=== PATIENT | male | born 1960 | race American Indian/Alaskan Native ===

== ENCOUNTER 2020-03-01 22:50 | Emergency (ER) | payer BC ==
[2020-03-02] MEDS ORDERED: HYOSCYAMINE SUBL 0.125 MG TAB SL ONE (00:59)
[2020-03-02] MEDS ORDERED: ONDANSETRON 4 MG ODT TAB PO ONE (01:01)
--- NOTE | 2020-03-02 03:01 | Emergency Department Report ---
ED N/V/D HPI - General Chief complaint: Nausea/Vomiting/Diarrhea Stated complaint: VOMITING Time Seen by Provider: 03/02/20 00:11 Source: patient Mode of arrival: Ambulatory Limitations: No Limitations - History of Present Illness Initial comments: 60-year-old F [place]an male with emerge department complaining of suspected food poisoning exacerbation from [facility] states that he consumed palpable around 7 PM and developed 3-4 episodes of vomiting followed by 1 episode of diarrhea waxing and waning abdominal pain and cramping since ingestion of food. Ports no hemoptysis no hematemesis no hematochezia. No fever, chills, sweats no chest pain or palpitations. With history of hypertension for which she takes very compliant with his medication and did try to utilize [id number] Mucinex for some cough and congestion which he states further exacerbated his vomiting but he has not yet had a fever. He did he reports no foreign travel no known sick contacts Description of Vomiting: food contents Radiation: none Severity: mild, moderate Quality: dull Consistency: constant Improves with: none Worsens with: none Associated Symptoms: denies other symptoms. denies: chest pain, cough, loss of appetite, malaise, rash, weakness - Related Data Previous Rx's Medication Instructions Recorded Last Taken Type Hyoscyamine Subl [Levsin Sl 0.125 0.125 mg SL Q6HR PRN #20 tab 03/02/20 Unknown Rx TAB] Ondansetron [Zofran ODT TAB] 8 mg PO Q12HR #14 tab.rapdis 03/02/20 Unknown Rx Allergies Allergy/AdvReac Type Severity Reaction Status Date / Time No Known Allergies Allergy Unverified 03/02/20 00:59 ED Review of Systems ROS: Stated complaint: VOMITING Other details as noted in HPI Comment: All other systems reviewed and negative ED Past Medical Hx - Past Medical History Previous Medical History?: Yes Hx Hypertension: Yes - Surgical History Past Surgical History?: Yes - Social History Smoking Status: Current Every Day Smoker Substance Use Type: None - Medications Home Medications: Home Medications Medication Instructions Recorded Confirmed Last Taken Type Hyoscyamine Subl [Levsin Sl 0.125 0.125 mg SL Q6HR PRN #20 tab 03/02/20 Unknown Rx TAB] Ondansetron [Zofran ODT TAB] 8 mg PO Q12HR #14 tab.rapdis 03/02/20 Unknown Rx ED Physical Exam - General Limitations: No Limitations General appearance: alert, in no apparent distress - Head Head exam: Present: atraumatic, normocephalic - Eye Eye exam: Present: normal appearance, PERRL, EOMI Pupils: Present: normal accommodation - ENT ENT exam: Present: normal exam, mucous membranes moist, TM's normal bilaterally - Neck Neck exam: Present: normal inspection, full ROM - Respiratory Respiratory exam: Present: normal lung sounds bilaterally. Absent: respiratory distress, wheezes, rales, chest wall tenderness - Cardiovascular Cardiovascular Exam: Present: regular rate, normal rhythm. Absent: systolic murmur, diastolic murmur, rubs, gallop - GI/Abdominal GI/Abdominal exam: Present: soft, normal bowel sounds. Absent: tenderness, guarding - Rectal Rectal exam: Present: deferred - Extremities Exam Extremities exam: Present: normal inspection - Back Exam Back exam: Present: normal inspection. Absent: CVA tenderness (R), CVA tenderness (L) - Neurological Exam Neurological exam: Present: alert, oriented X3, CN II-XII intact - Psychiatric Psychiatric exam: Present: normal affect, normal mood. Absent: anxious, flat affect, suicidal ideation - Skin Skin exam: Present: warm, dry, intact, normal color. Absent: rash ED Course Vital Signs 03/01/20 22:57 Temperature 98.7 F Pulse Rate 85 Respiratory 18 Rate Blood Pressure 153/101 O2 Sat by Pulse 97 Oximetry Critical care attestation.: If time is entered above; I have spent that time in minutes in the direct care of this critically ill patient, excluding procedure time. ED Disposition Clinical Impression: Gastroenteritis Disposition: DC-01 TO HOME OR SELFCARE Is pt being admited?: No Does the pt Need Aspirin: No Condition: Stable Instructions: Gastroenteritis (ED), Acute Nausea and Vomiting (ED), Food Poisoning (ED) Prescriptions: Hyoscyamine Subl [Levsin Sl 0.125 TAB] 0.125 mg SL Q6HR PRN #20 tab PRN Reason: abdominal cramps and spasms Ondansetron [Zofran ODT TAB] 8 mg PO Q12HR #14 tab.kapil Referrals: DR. DELLA [Other] - 3-5 Days
[2020-03-02 03:24] VITALS: BP 124/90
== END 2020-03-02 03:24 | disposition home or self-care (01) ==
LOC: ED 22:50
DX: K52.89 Other specified noninfective gastroenteritis and colitis (principal); I10 Essential (primary) hypertension; F17.200 Nicotine dependence, unspecified, uncomplicated
CPT/HCPCS: 99282; Q0162

== ENCOUNTER 2020-03-02 17:09 | Emergency (ER) | payer BC ==
[2020-03-02 17:30] VITALS: BP 131/103
[2020-03-02] MEDS ORDERED: ONDANSETRON 4 MG ODT TAB PO ONE (18:05)
[2020-03-02] MEDS ORDERED: LIDOCAINE VISCOUS 2% 15 ML ORAL LIQD PO ONE (18:05)
[2020-03-02] MEDS ORDERED: ALUM-MAG HYDROXIDE-SIMETHICONE 200-200-20MG/5ML ORAL LIQD 30 ML PO ONE (18:05)
--- NOTE | 2020-03-02 18:19 | Emergency Department Report ---
ED General Adult HPI - General Chief complaint: Sore Throat Stated complaint: MUCUS IN THROAT Time Seen by Provider: 03/02/20 18:01 Source: patient Mode of arrival: Ambulatory Limitations: No Limitations - History of Present Illness Initial comments: This very pleasant 60-year-old male presents the emergency department with a chief complaint of a sensation of thick mucus in his throat started last night. Patient was seen in the emergency department last night due to suspicion that he may have food poisoning. He reported some nausea, vomiting, diarrhea and some intermittent abdominal cramping after eating [employer]. He states he is concerned about thick mucus in the back of his throat. He has past medical history of hypertension. He denies any associated fever, chills, night sweats, headache, dizziness, blurry vision, hematemesis, melena, hematochezia, weakness or any other associated symptoms. - Related Data Previous Rx's Medication Instructions Recorded Last Taken Type Famotidine [Pepcid] 10 mg PO BID #20 tablet 03/02/20 Unknown Rx Hyoscyamine Subl [Levsin Sl 0.125 0.125 mg SL Q6HR PRN #20 tab 03/02/20 Unknown Rx TAB] Ondansetron [Zofran ODT TAB] 8 mg PO Q12HR #14 tab.rapdis 03/02/20 Unknown Rx Allergies Allergy/AdvReac Type Severity Reaction Status Date / Time No Known Allergies Allergy Unverified 03/02/20 00:59 ED Review of Systems ROS: Stated complaint: MUCUS IN THROAT Other details as noted in HPI Constitutional: denies: chills, fever Eyes: denies: eye pain, eye discharge, vision change ENT: as per HPI. denies: ear pain, throat pain Respiratory: denies: cough, shortness of breath, wheezing Cardiovascular: denies: chest pain, palpitations Endocrine: no symptoms reported Gastrointestinal: as per HPI, nausea, vomiting, diarrhea Genitourinary: denies: urgency, dysuria Musculoskeletal: denies: back pain, joint swelling, arthralgia Skin: denies: rash, lesions Neurological: denies: headache, weakness, paresthesias Psychiatric: denies: anxiety, depression Hematological/Lymphatic: denies: easy bleeding, easy bruising ED Past Medical Hx - Past Medical History Previous Medical History?: Yes Hx Hypertension: Yes - Social History Smoking Status: Never Smoker Substance Use Type: None - Medications Home Medications: Home Medications Medication Instructions Recorded Confirmed Last Taken Type Famotidine [Pepcid] 10 mg PO BID #20 tablet 03/02/20 Unknown Rx Hyoscyamine Subl [Levsin Sl 0.125 0.125 mg SL Q6HR PRN #20 tab 03/02/20 Unknown Rx TAB] Ondansetron [Zofran ODT TAB] 8 mg PO Q12HR #14 tab.rapdis 03/02/20 Unknown Rx ED Physical Exam - General Limitations: No Limitations General appearance: alert, in no apparent distress - Head Head exam: Present: atraumatic, normocephalic - Eye Eye exam: Present: normal appearance, PERRL, EOMI Pupils: Absent: normal accommodation - ENT ENT exam: Present: normal exam, normal orophraynx, mucous membranes moist - Neck Neck exam: Present: normal inspection, full ROM. Absent: tenderness, meningismus - Respiratory Respiratory exam: Present: normal lung sounds bilaterally. Absent: respiratory distress, wheezes, rales, rhonchi, stridor, chest wall tenderness - Cardiovascular Cardiovascular Exam: Present: regular rate, normal rhythm, normal heart sounds. Absent: systolic murmur, diastolic murmur, rubs, gallop - GI/Abdominal GI/Abdominal exam: Present: soft, normal bowel sounds, other (Negative M cBurney's point tenderness, negative Morrison sign, no rebound or guarding.). Absent: distended, tenderness, guarding, rebound, rigid - Rectal Rectal exam: Present: deferred - Extremities Exam Extremities exam: Present: normal inspection, full ROM, normal capillary refill. Absent: tenderness, calf tenderness - Back Exam Back exam: Present: normal inspection, full ROM. Absent: tenderness, CVA tenderness (R), CVA tenderness (L) - Neurological Exam Neurological exam: Present: alert, oriented X3, normal gait. Absent: motor sensory deficit - Psychiatric Psychiatric exam: Present: normal affect, normal mood - Skin Skin exam: Present: warm, dry, intact, normal color. Absent: rash ED Course Vital Signs 03/02/20 03/02/20 17:26 20:34 Temperature 98.7 F Pulse Rate 117 H 83 Respiratory 20 20 Rate Blood Pressure 131/103 O2 Sat by Pulse 97 98 Oximetry ED Medical Decision Making - Lab Data Result diagrams: 03/02/20 18:19 03/02/20 18:19 Lab Results 03/02/20 03/02/20 03/02/20 Range/Units 18:18 18:19 18:19 WBC 7.9 (4.5-11.0) K/mm3 RBC 5.13 H (3.65-5.03) M/mm3 Hgb 16.2 H (11.8-15.2) gm/dl Hct 46.4 H (35.5-45.6) % MCV 90 (84-94) fl MCH 32 (28-32) pg MCHC 35 H (32-34) % RDW 13.8 (13.2-15.2) % Plt Count 183 (140-440) K/mm3 Lymph % (Auto) 16.2 (13.4-35.0) % Delta % (Auto) 5.4 (0.0-7.3) % Eos % (Auto) 0.1 (0.0-4.3) % Baso % (Auto) 0.3 (0.0-1.8) % Lymph # 1.3 (1.2-5.4) K/mm3 Delta # 0.4 (0.0-0.8) K/mm3 Eos # 0.0 (0.0-0.4) K/mm3 Baso # 0.0 (0.0-0.1) K/mm3 Seg Neutrophils % 78.0 H (40.0-70.0) % Seg Neutrophils # 6.2 (1.8-7.7) K/mm3 Sodium 138 (137-145) mmol/L Potassium 3.5 L (3.6-5.0) mmol/L Chloride 98.0 (98-107) mmol/L Carbon Dioxide 25 (22-30) mmol/L Anion Gap 19 mmol/L BUN 13 (9-20) mg/dL Creatinine 1.1 (0.8-1.3) mg/dL Estimated GFR > 60 ml/min BUN/Creatinine Ratio 12 % Glucose 112 H (75-100) mg/dL Calcium 10.4 H (8.4-10.2) mg/dL Total Bilirubin 1.20 (0.1-1.2) mg/dL AST 29 (5-40) units/L ALT 30 (7-56) units/L Alkaline Phosphatase 71 (35-129) units/L Total Protein 8.4 H (6.3-8.2) g/dL Albumin 4.3 (3.9-5) g/dL Albumin/Globulin Ratio 1.0 % Lipase 21 (13-60) units/L Urine Color Straw (Yellow) Urine Turbidity Clear (Clear) Urine pH 6.0 (5.0-7.0) Ur Specific [place] 1.005 (1.003-1.030) Urine Protein <15 mg/dl (Negative) mg/dL Urine Glucose (UA) Neg (Negative) mg/dL Urine Ketones Neg (Negative) mg/dL Urine Blood Neg (Negative) Urine Nitrite Neg (Negative) Urine Bilirubin Neg (Negative) Urine Urobilinogen < 2.0 (<2.0) mg/dL Ur Leukocyte Esterase Neg (Negative) Urine WBC (Auto) 0.0 (0.0-6.0) /HPF Urine RBC (Auto) < 1.0 (0.0-6.0) /HPF Urine Bacteria (Auto) 1+ (Negative) /HPF - Radiology Data Radiology results: report reviewed X-ray soft tissue neck showed no acute findings per radiology read. - Medical Decision Making Patient presented emergency department with sore throat. On inspection the throat was normal with no peritonsillar bulging, retropharyngeal bulging, tongue elevation, drooling or dysphonia. Patient reports he feels as if there is thick mucus in his throat which I cannot see. His airway was patent. There is no oropharyngeal edema. X-ray soft tissue showed a patent airway with a normal- appearing epiglottis. The lab work was unremarkable. Urine was unremarkable. He was given medications in the ER and reported no significant improvement in his symptoms. Due to his airway being patent I will discharge him in stable condition with outpatient follow-up. I did give him steroids for think will help his symptoms recommended Pepcid, and outpatient follow-up with gastroenterology. Patient instructed to return to the emerge part if he develops any changing worsening symptoms. He verbalized understanding the diagnosis, treatment plan and follow-up instructions and all of his questions were answered. - Differential Diagnosis Strep throat, pharyngitis, GERD Critical care attestation.: If time is entered above; I have spent that time in minutes in the direct care of this critically ill patient, excluding procedure time. ED Disposition Clinical Impression: Sore throat Disposition: TO HOME OR SELFCARE Is pt being admited?: No Condition: Stable Instructions: Pharyngitis (ED) Prescriptions: Famotidine [Pepcid] 10 mg PO BID #20 tablet Referrals: PRIMARY CARE, [Primary Care Provider] - 3-5 Days DON MENA MD [Staff Physician] - 3-5 Days FABIANA GRANADOS MD [Staff Physician] - 3-5 Days Time of Disposition: 21:10
[2020-03-02 18:54] LABS: Bacteria,Urine 1+ /HPF (Negative); Bilirubin,Urine NEG (Negative); Blood,Urine NEG (Negative); Color,Urine Straw (Yellow); Protein,Urine <15 mg/dL mg/dL (Negative); RBC,Urine < 1.0 /HPF (0.0-6.0); Urobilinogen,Urine < 2.0 mg/dL (<2.0)
[2020-03-02 19:05] LABS: BUN/Creatinine Ratio 12; Blood Urea Nitrogen 13 mg/dL (9-20); Calcium 10.4 mg/dL (8.4-10.2)
[2020-03-02 19:06] LABS: Alanine Aminotransferase 30 units/L (7-56); Albumin 4.3 g/dL (3.9-5); Hemolysis Index 9
[2020-03-02] MEDS ORDERED: IPRATROPIUM/ALBUTEROL SULFATE 3 ML AMPUL.NEB IH ONE (19:22)
[2020-03-02] MEDS ORDERED: dexAMETHasone 20 MG/5 ML VIAL IM ONE (19:22)
[2020-03-02 19:29] LABS: Basophils % (Auto) 0.3 % (0.0-1.8); Eosinophils % (Auto) 0.1 % (0.0-4.3); Hematocrit 46.4 % (35.5-45.6); Hemoglobin 16.2 gm/dl (11.8-15.2); Lymphocytes # (Auto) 1.3 K/mm3 (1.2-5.4); Lymphocytes % (Auto) 16.2 % (13.4-35.0); Mean Corpuscular HGB Conc 35 % (32-34); Mean Corpuscular Volume 90 fl (84-94); Monocytes # (Auto) 0.4 K/mm3 (0.0-0.8); Monocytes % (Auto) 5.4 % (0.0-7.3); Platelet Count 183 K/mm3 (140-440); Red Blood Count 5.13 M/mm3 (3.65-5.03); Red Cell Distribution Width 13.8 % (13.2-15.2)
--- NOTE | 2020-03-02 20:57 | XRay Report ---
SOFT TISSUES OF THE NECK 2 VIEWS INDICATION / CLINICAL INFORMATION: sore throat, possible fb. COMPARISON: None available. FINDINGS: Airway appears intact. Epiglottis is normal. No radiopaque foreign body. Obviously, if soft tissue abnormality is suspected, CT would be much more sensitive. Signer Name: Harvey Bryant MD Signed: 03/02/2020 8:53 PM Workstation Name: [id number]
== END 2020-03-02 21:25 | disposition home or self-care (01) ==
LOC: ED 17:09
DX: J02.9 Acute pharyngitis, unspecified (principal); I10 Essential (primary) hypertension
CPT/HCPCS: 36415; 70360; 80053; 81001; 83690; 85025; 94640; 96372; 99284; J1100; Q0162

== ENCOUNTER 2021-07-28 15:15 | Emergency (ER) | payer BC ==
--- NOTE | 2021-07-28 17:38 | XRay Report ---
XR chest routine 2V INDICATION / CLINICAL INFORMATION: chest pain. COMPARISON: None available. FINDINGS: SUPPORT DEVICES: None. HEART /PULMONARY VASCULATURE: No significant abnormality. LUNGS / PLEURA: No significant pulmonary or pleural abnormality. No pneumothorax. ADDITIONAL FINDINGS: No significant additional findings. IMPRESSION: 1. No acute findings. Signer Name: Edmond Messer MD Signed: 07/28/2021 5:34 PM Workstation Name: [id number]
[2021-07-28 17:43] LABS: Basophils % (Auto) 0.9 % (0.0-1.8); Hematocrit 48.4 % (35.5-45.6); Lymphocytes # (Auto) 1.6 K/mm3 (1.2-5.4); Lymphocytes % (Auto) 36.9 % (13.4-35.0); Mean Corpuscular HGB Conc 33 % (32-34); Mean Corpuscular Volume 90 fl (84-94); Monocytes # (Auto) 0.5 K/mm3 (0.0-0.8); Monocytes % (Auto) 11.5 % (0.0-7.3); Platelet Count 182 K/mm3 (140-440); Red Blood Count 5.35 M/mm3 (3.65-5.03); Red Cell Distribution Width 13.7 % (13.2-15.2)
--- NOTE | 2021-07-28 17:53 | Emergency Department Report ---
ED Syncope HPI - General Chief Complaint: Neuro Symptoms/Deficit Stated Complaint: BLURRED VISION/PASSED OUT Time Seen by Provider: 07/28/21 17:14 Source: patient - History of Present Illness Initial Comments: 61-year-old black male patient with a past medical history of hypertension presents to the emergency department for evaluation of syncope. He states that while at work 2 weeks ago he started to feel dizzy nauseated and had a syncopal episode. He states that his coworkers caught him before his head hit the ground, and then he had some intermittent blurred vision after the syncope. He states that he went to see his primary care provider a few days after the episode which was about 1.5 weeks ago, and his primary care provider instructed him to follow-up in the emergency department for further evaluation. Patient states that he did not come then but is here now 1-1/2 weeks later. He states that he is still having intermittent blurred vision along with some dizziness. He denies any further syncopal episodes and states that he is not having blurred vision at this time. He denies chest pain, shortness of breath, vomiting, fever, cough, and abdominal pain. Of note, he states that when he had his visit with his primary care doctor 1.5 weeks ago, he was instructed to cut his blood pressure medication in half which he did. Timing/Prior Episodes: recent history (Single episode 2 weeks ago) Precipitating Factors: Positive: lightheadedness, nausea Context: activity Loss of Consciousness: brief (seconds) Current Symptoms: blurred vision, dizziness, headache, lightheadedness, nausea. denies: chest pain, diaphoresis, injury, loss of bladder control, loss of bowel control, motionless, pale, shallow/rapid breathing, weak/absent pulse, weakness - Related Data Allergies/Adverse Reactions: Allergies No Known Allergies Allergy (Unverified 03/02/20 00:59) Home Medications: Ambulatory Orders Famotidine [Pepcid] 10 mg PO BID #20 tablet 03/02/20 Hyoscyamine Subl [Levsin Sl 0.125 TAB] 0.125 mg SL Q6HR PRN #20 tab 03/02/20 Ondansetron [Zofran ODT TAB] 8 mg PO Q12HR #14 tab.rapdis 03/02/20 Meclizine [Antivert] 25 mg PO TID PRN #21 tab 07/28/21 ED Review of Systems ROS: Stated complaint: BLURRED VISION/PASSED OUT Other details as noted in HPI Comment: All other systems reviewed and negative Constitutional: denies: chills, diaphoresis, fever, malaise, weakness ENT: denies: ear pain, throat pain, dental pain Respiratory: denies: cough, orthopnea, shortness of breath, SOB with exertion, SOB at rest Cardiovascular: syncope. denies: chest pain, palpitations, dyspnea on exertion, orthopnea, edema, paroxysmal nocturnal dyspnea Endocrine: no symptoms reported Gastrointestinal: nausea. denies: abdominal pain, vomiting, diarrhea, constipation, hematemesis, melena, hematochezia Genitourinary: denies: urgency, dysuria, frequency, hematuria, discharge, testicular pain Musculoskeletal: denies: back pain, joint swelling, arthralgia, myalgia Skin: denies: rash, lesions, change in hair/nails Neurological: headache. denies: weakness, numbness, paresthesias, confusion, abnormal gait, vertigo Psychiatric: denies: anxiety, depression Hematological/Lymphatic: denies: easy bleeding, easy bruising ED Past Medical Hx - Past Medical History Hx Hypertension: Yes - Social History Smoking Status: Never Smoker - Medications Home Medications: Home Medications Medication Instructions Recorded Confirmed Last Taken Type Famotidine [Pepcid] 10 mg PO BID #20 tablet 03/02/20 Unknown Rx Hyoscyamine Subl [Levsin Sl 0.125 0.125 mg SL Q6HR PRN #20 tab 03/02/20 Unknown Rx TAB] Ondansetron [Zofran ODT TAB] 8 mg PO Q12HR #14 tab.rapdis 03/02/20 Unknown Rx Meclizine [Antivert] 25 mg PO TID PRN #21 tab 07/28/21 Unknown Rx ED Physical Exam - General Limitations: No Limitations General appearance: alert, in no apparent distress - Head Head exam: Present: atraumatic, normocephalic - Eye Eye exam: Present: normal appearance. Absent: conjunctival injection - Neck Neck exam: Present: normal inspection, full ROM. Absent: tenderness, lymphade nopathy - Respiratory Respiratory exam: Present: normal lung sounds bilaterally. Absent: respiratory distress, wheezes, rales, rhonchi, stridor, chest wall tenderness, accessory muscle use - Cardiovascular Cardiovascular Exam: Present: regular rate. Absent: normal heart sounds - GI/Abdominal GI/Abdominal exam: Present: soft, normal bowel sounds. Absent: distended, tenderness, guarding, rebound, rigid - Extremities Exam Extremities exam: Present: normal inspection, full ROM - Back Exam Back exam: Present: normal inspection, full ROM. Absent: tenderness, CVA tenderness (R), CVA tenderness (L), muscle spasm, vertebral tenderness - Neurological Exam Neurological exam: Present: alert, oriented X3 - Psychiatric Psychiatric exam: Present: normal affect, normal mood - Skin Skin exam: Present: warm, dry, intact, normal color ED Course Vital Signs 07/28/21 07/28/21 16:59 19:49 Temperature 98.5 F 97.9 F Pulse Rate 83 79 Respiratory 18 19 Rate Blood Pressure 126/95 126/77 [Right] O2 Sat by Pulse 98 100 Oximetry ED Medical Decision Making - Lab Data Result diagrams: 07/28/21 17:33 07/28/21 17:33 - EKG Data EKG shows normal: sinus rhythm - EKG Data Interpretation: normal EKG 07/28/21 20:59 No acute ischemic changes noted - Radiology Data Radiology results: report reviewed Chest x-ray IMPRESSION: 1. No acute findings. CT scan of head IMPRESSION: 1. No focal mass, hemorrhage, hydrocephalus, or acute, large territorial infarct. - Medical Decision Making 61-year-old black male patient with a past medical history of hypertension presents to the emergency department for evaluation of syncope. He states that while at work 2 weeks ago he started to feel dizzy nauseated and had a syncopal episode. He states that his coworkers caught him before his head hit the ground, and then he had some intermittent blurred vision after the syncope. He states that he went to see his primary care provider a few days after the episode which was about 1.5 weeks ago, and his primary care provider instructed him to follow-up in the emergency department for further evaluation. Patient s tates that he did not come then but is here now 1-1/2 weeks later. He states that he is still having intermittent blurred vision along with some dizziness. He denies any further syncopal episodes and states that he is not having blurred vision at this time. He denies chest pain, shortness of breath, vomiting, fever, cough, and abdominal pain. Of note, he states that when he had his visit with his primary care doctor 1.5 weeks ago, he was instructed to cut his blood pressure medication in half which he did. Chest x-ray and CT scan of the head without any acute findings. EKG without any acute ischemic changes. CBC CMP troponin and UA without any significant abnormalities. Patient was given meclizine while in the emergency department as symptoms resolved. Patient will be treated with meclizine at home to use as needed. He was advised to follow-up with primary care doctor and neurology if no improvement or worsening symptoms. Plan of care was reviewed with patient and he verbalized understanding of and agreement with. He was advised to return to the ER for any concerning symptoms or any worsening symptoms. Critical care attestation.: If time is entered above; I have spent that time in minutes in the direct care of this critically ill patient, excluding procedure time. ED Disposition Clinical Impression: Dizziness Disposition: 01 HOME / SELF CARE / HOMELESS Is pt being admited?: No Does the pt Need Aspirin: No Condition: Stable Instructions: Dizziness, [id number] Additional Instructions: Take medication as needed for dizziness. Follow-up with primary care provider and neurology for further evaluation. Return to the emergency room if worsening symptoms. Prescriptions: Meclizine [Antivert] 25 mg PO TID PRN #21 tab PRN Reason: Vertigo Referrals: HARMAN HULL MD [Primary Care Provider] - 3-5 Days RICHI MELENDREZ MD [Staff Physician] - 3-5 Days Time of Disposition: 18:36
[2021-07-28 18:06] LABS: Alanine Aminotransferase 21 units/L (7-56); Albumin 4.2 g/dL (3.9-5); BUN/Creatinine Ratio 12; Blood Urea Nitrogen 13 mg/dL (9-20); Calcium 9.8 mg/dL (8.4-10.2); Hemolysis Index 13
[2021-07-28 18:16] LABS: Bilirubin,Urine NEG (Negative); Blood,Urine NEG (Negative); Color,Urine Yellow (Yellow); Mucus,Urine FEW /HPF; Protein,Urine <15 mg/dL mg/dL (Negative); RBC,Urine < 1.0 /HPF (0.0-6.0); Urobilinogen,Urine < 2.0 mg/dL (<2.0); WBC,Urine < 1.0 /HPF (0.0-6.0)
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
[2021-07-28] MEDS ORDERED: MECLIZINE 25 MG TAB PO ONE (18:27)
[2021-07-28 19:50] VITALS: BP 126/77
--- NOTE | 2021-07-29 13:20 | Electrocardiograph Report ---
[facility] Test Date: 2021-07-28 Test Time: 17:39:47 Pat Name: ELLYN GUTIERREZ Department: Room: Gender: M Product Marketing Manager: KILEY : 1960 Requested By: EDGARD REDD Order Number: [id number] Reading MD: Micheal Parra Measurements Intervals [place] Rate: 72 P: 19 MT: 162 QRS: 18 QRSD: 76 T: -10 QT: 363 QTc: 399 Interpretive Statements Sinus rhythm Probable left atrial enlargement No previous ECG available for comparison Electronically Signed On 07-29-2021 13:20:03 EST by Micheal Parra
== END 2021-07-28 19:50 | disposition home or self-care (01) ==
LOC: ED 15:15
DX: R42 Dizziness and giddiness (principal); I10 Essential (primary) hypertension
CPT/HCPCS: 36415; 70450; 71046; 80053; 81001; 84484; 85025; 93005; 93010; 99284

== ENCOUNTER 2021-12-21 19:32 | Emergency (ER) | payer BC ==
[2021-12-21 21:55] LABS: Bilirubin,Urine NEG (Negative); Blood,Urine NEG (Negative); Color,Urine Yellow (Yellow); Protein,Urine <15 mg/dL mg/dL (Negative); Urobilinogen,Urine < 2.0 mg/dL (<2.0)
[2021-12-21 22:00] LABS: Mucus,Urine 2+ /HPF; Renal Epithelial Cells,Urine <1 /LPF
--- NOTE | 2021-12-22 07:09 | Emergency Department Report ---
ED General Adult HPI - General Chief complaint: Urogenital-Male Stated complaint: URINARY URGENCY Time Seen by Provider: 12/22/21 06:14 Source: patient Mode of arrival: Ambulatory Limitations: No Limitations - History of Present Illness Initial comments: Patient is a patient who presents with urinary frequency for the last 2 to 3 days. Patient denies having dysuria or any urinary pain. It seems that he states that he needs to pee more. Patient has a history of high blood pressure. He has no abdominal pain no nausea no vomiting. He has no fever or chills - Related Data Previous Rx's Medication Instructions Recorded Last Taken Type Famotidine [Pepcid] 10 mg PO BID #20 tablet 03/02/20 Unknown Rx Hyoscyamine Subl [Levsin Sl 0.125 0.125 mg SL Q6HR PRN #20 tab 03/02/20 Unknown Rx TAB] Ondansetron [Zofran ODT TAB] 8 mg PO Q12HR #14 tab.rapdis 03/02/20 Unknown Rx Meclizine [Antivert] 25 mg PO TID PRN #21 tab 07/28/21 Unknown Rx Allergies Allergy/AdvReac Type Severity Reaction Status Date / Time No Known Allergies Allergy Unverified 03/02/20 00:59 ED Review of Systems ROS: Stated complaint: URINARY URGENCY Other details as noted in HPI Constitutional: denies: chills, fever Eyes: denies: eye pain, eye discharge, vision change ENT: denies: ear pain, throat pain Respiratory: denies: cough, shortness of breath, wheezing Cardiovascular: denies: chest pain, palpitations Endocrine: no symptoms reported Gastrointestinal: denies: abdominal pain, nausea, diarrhea Genitourinary: frequency. denies: urgency, dysuria Musculoskeletal: denies: back pain, joint swelling, arthralgia Skin: denies: rash, lesions Neurological: denies: headache, weakness, paresthesias Psychiatric: denies: anxiety, depression Hematological/Lymphatic: denies: easy bleeding, easy bruising ED Past Medical Hx - Past Medical History Hx Hypertension: Yes - Social History Smoking Status: Never Smoker Substance Use Type: None - Medications Home Medications: Home Medications Medication Instructions Recorded Confirmed Last Taken Type Famotidine [Pepcid] 10 mg PO BID #20 tablet 03/02/20 Unknown Rx Hyoscyamine Subl [Levsin Sl 0.125 0.125 mg SL Q6HR PRN #20 tab 03/02/20 Unknown Rx TAB] Ondansetron [Zofran ODT TAB] 8 mg PO Q12HR #14 tab.rapdis 03/02/20 Unknown Rx Meclizine [Antivert] 25 mg PO TID PRN #21 tab 07/28/21 Unknown Rx ED Physical Exam - General Limitations: No Limitations General appearance: alert, in no apparent distress - Head Head exam: Present: atraumatic, normocephalic - Eye Eye exam: Present: normal appearance - ENT ENT exam: Present: mucous membranes moist - Neck Neck exam: Present: normal inspection - Respiratory Respiratory exam: Present: normal lung sounds bilaterally. Absent: respiratory distress - Cardiovascular Cardiovascular Exam: Present: regular rate, normal rhythm. Absent: systolic murmur, diastolic murmur, rubs, gallop - GI/Abdominal GI/Abdominal exam: Present: soft, normal bowel sounds - Rectal Rectal exam: Present: deferred - Extremities Exam Extremities exam: Present: normal inspection - Back Exam Back exam: Present: normal inspection - Neurological Exam Neurological exam: Present: alert, oriented X3 - Psychiatric Psychiatric exam: Present: normal affect, normal mood - Skin Skin exam: Present: warm, dry, intact, normal color. Absent: rash ED Course Vital Signs 12/21/21 12/22/21 12/22/21 20:13 03:41 03:46 Temperature 98.6 F Pulse Rate 89 61 57 L Respiratory 18 16 24 Rate Blood Pressure 127/88 133/94 O2 Sat by Pulse 97 98 99 Oximetry 12/22/21 12/22/21 12/22/21 03:50 04:00 04:16 Temperature 98.4 F Pulse Rate 63 58 L 70 Respiratory 20 22 15 Rate Blood Pressure 133/94 133/94 133/94 O2 Sat by Pulse 99 95 99 Oximetry 12/22/21 12/22/21 12/22/21 04:30 04:46 05:00 Temperature Pulse Rate 55 L 58 L 59 L Respiratory 19 17 18 Rate Blood Pressure 133/94 118/83 118/83 O2 Sat by Pulse 96 95 94 Oximetry 12/22/21 12/22/21 12/22/21 05:16 05:30 05:46 Temperature Pulse Rate 63 62 55 L Respiratory 19 14 16 Rate Blood Pressure 118/83 118/83 113/81 O2 Sat by Pulse 96 97 97 Oximetry 12/22/21 06:00 Temperature Pulse Rate 54 L Respiratory 17 Rate Blood Pressure 118/83 O2 Sat by Pulse 97 Oximetry ED Medical Decision Making - Lab Data Lab Results 12/21/21 Range/Units Unknown Urine Color Yellow (Yellow) Urine Turbidity Clear (Clear) Urine pH 6.0 (5.0-7.0) Ur Specific [place] 1.019 (1.003-1.030) Urine Protein <15 mg/dl (Negative) mg/dL Urine Glucose (UA) Neg (Negative) mg/dL Urine Ketones Neg (Negative) mg/dL Urine Blood Neg (Negative) Urine Nitrite Neg (Negative) Urine Bilirubin Neg (Negative) Urine Urobilinogen < 2.0 (<2.0) mg/dL Ur Leukocyte Esterase Neg (Negative) Urine WBC (Auto) 1.0 (0.0-6.0) /HPF Urine RBC (Auto) 2.0 (0.0-6.0) /HPF Ur Renal Epithelial Cell <1 /LPF Urine Mucus 2+ /HPF - Medical Decision Making Chief medical diagnosis urinary frequency secondary to food diuretics Differential medical diagnosis UTI, hyperglycemia Await urinalysis and I will reevaluate the patient. Patient's urinalysis is unremarkable I will discharge patient home with follow- up with urology and primary care doctor Critical care attestation.: If time is entered above; I have spent that time in minutes in the direct care of this critically ill patient, excluding procedure time. ED Disposition Clinical Impression: Urinary frequency Disposition: 01 HOME / SELF CARE / HOMELESS Is pt being admited?: No Does the pt Need Aspirin: No Condition: Stable Instructions: Urinary Frequency, Adult Referrals: THOMAS CASTILLO MD [Staff Physician] - 3-5 Days
[2021-12-22 08:02] VITALS: BP 131/88
== END 2021-12-22 08:58 | disposition home or self-care (01) ==
LOC: ED 19:32
DX: R35.0 Frequency of micturition (principal); I10 Essential (primary) hypertension
CPT/HCPCS: 81001; 99283